=== PATIENT | female | born 1965 | race Caucasian/White ===

== ENCOUNTER → 2018-01-13 22:25 | Outpatient (CLI) | payer OTHER, SELFPAY ==
[2018-01-16 09:02] LABS: HPV Reflexed? NOT INDICATED
== END ==
PROVIDERS: Visit Provider Obstetrics & Gynecology
DX: Z12.4 Encounter for screening for malignant neoplasm of cervix (principal)
CPT/HCPCS: 88175; G0145

== ENCOUNTER → 2019-06-01 14:35 | Outpatient (CLI) | payer OTHER, SELFPAY ==
[2015-11-13 10:17] VITALS: BMI 29.2
[2019-06-01 15:10] LABS: Follicle Stimulating Hormone 91.4 mIU/mL
[2019-06-05 10:01] LABS: HPV APTIMA, High Risk Negative (Negative)
== END ==
PROVIDERS: Visit Provider Obstetrics & Gynecology
DX: Z12.4 Encounter for screening for malignant neoplasm of cervix (principal); N93.9 Abnormal uterine and vaginal bleeding, unspecified
CPT/HCPCS: 83001; 87624; 88175; G0145

== ENCOUNTER 2019-06-17 07:17 | Day surgery (SDC) | payer OTHER, SELFPAY ==
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
[2019-06-17] MEDS: Lactated Ringers 1,000 ML 75 ML IV (07:59)
[2019-06-17 08:10] VITALS: BP 121/81; PULSE 66; RESP 16; TEMP 36.4; O2SAT 97; BMI 30.3
--- NOTE | 2019-06-17 08:55 | EMB_PTH ---
PATIENT: RADHA CROWE LOC: [facility] [place] U#:[id number] AGE/SX: 54/F ROOM: RE06/17/[address]: Dr. Jaclyn Mayes MD : 1965 BED: DIS: 06/17/2019 SPEC #: [id number] RECD: 06/17/19 10:53 STATUS: ROSA RETristen #: [id number] JOCY: 06/17/19 08:[address]: Jaclyn Malcolm DEPT: SURGICAL PATHOLOGY RECD BY: Suraj Schroeder ENTERED: 06/17/19 11:13 SP TYPE: ENDOM BX/C OTHR DR: No Primary Care Phys Tissues: Endometrium, NOS Procedures: Surgery Specimen Level IV HEADER OPERATION: Hysteroscopy, dilation and curettage, Symphion PRE-OP DIAGNOSIS: Postmenopausal bleeding TISSUE SUBMITTED: Endometrial curettings and polyp MICROSCOPIC DIAGNOSIS Endometrial curettings and polyp, biopsy: A fragment of benign endometrial tissue with proliferative endometrium and cystic changes, may represent fragment of benign endometrial polyp. JODI:omar 06/18/19 COMMENT Clinical correlation and appropriate follow up are necessary. MICROSCOPIC DESCRIPTION Slides are reviewed. GROSS DESCRIPTION Received in fixative is one container labeled with the patient's name and designated endometrial curettings. The specimen consists of multiple fragments of hemorrhagic soft tissue that in aggregate measure 0.4 x 0.1 x 0.1 cm. The entire specimen is submitted in one cassette. / JODI:omar 06/17/19 TC:5 CPT: 32188
[2019-06-17] MEDS: Lubricating Jelly 60 GM Tube 30 GM TOPICAL (09:45)
--- NOTE | 2019-06-17 10:13 | PCM.OPRPT ---
Problem List (1) Postmenopausal bleeding Status: Acute Report of Operation Date of Procedure: 06/17/19 Pre-Operative Diagnosis: Post menopausal bleeding Post-Operative Diagnosis: Postmenopausal bleeding, endometrial polyp Surgery/Procedure Performed:: Hysteroscopy, dilation and curettage, hysteroscopic polypectomy Description of Surgical Findings:: Endometrial polyp, otherwise thin endometrium. Normal tubal ostia. Type of Anesthesia:: Local MAC Anesthesiologist: Christian Almazan Specimen's removed: Endometrial curettings and polyp Estimated Blood Loss (mL): 2 Fluids Replaced: 500 Description of Procedure: Patient was brought to the operating room and placed in the dorsal supine position and induced under MAC. She is placed into dorsal lithotomy. The perineum was prepped and draped in sterile fashion. The patient was placed in the high lithotomy. Speculum was placed into the vagina and the cervix grasped using single-tooth tenaculum. A paracervical block was placed with a total of 20 cc of 1% lidocaine. The percentage 9 cm and the cervix was subsequently dilated. Hysteroscopy was performed demonstrating an anterior endometrial polyp. A partial polypectomy was performed using polyp forceps and hysteroscopic polypectomy followed using the symphion manual resectoscope. Sharp curettage was subsequently performed. Hysteroscopy was again performed confirming integrity of the uterine cavity. The procedure was complete. The hysteroscope was removed. The tenaculum was also removed. The tenaculum site was hemostatic. The patient was placed into dorsal supine position, awakened and transferred to recovery room without complication. Sponge counts were correct x2. - Complications none - Admit VTE Documentation VTE Present on Admission: No VTE Mechan Device Prophylaxis: [facility] [place] VTE Pharm Prophylaxis ordered?: No
--- NOTE | 2019-06-17 10:22 | DCINST_ITS ---
Discharge Diet: No Restrictions Discharge Activity: Return to Normal Activity, May not drive while taking narcotic pain medications., May Shower May resume sexual activity in: - - 2-4 weeks Call your doctor if you observe: Fever of 101 or Higher, Inability to urinate, Inability to have a bowel movement, Using more than one pad per hour, Shortness of breath, Chest pain, Calf discomfort, Uncontrolled pain Allergies/Adverse Reactions: Allergies latex Allergy (Verified 06/10/19 09:17) PEELS SKIN OFF Penicillins Adverse Reaction (Verified 06/10/19 09:17) Rash Sulfa (Sulfonamide Antibiotics) Adverse Reaction (Verified 06/10/19 09:17) Rash Medications to take at Discharge Ascorbic Acid [Vitamin C] 500 mg PO DAILY@0800 11/06/15 Ibuprofen 600 mg PO TID PRN #30 tab 06/17/19 The following prescriptions were given: Ibuprofen 600 mg PO TID PRN #30 tab PRN Reason: Pain Transmission Status: Pending to [id number] Primary Care Physician: Care Physician,No Primary [Primary Care Provider] - Test Results: Test results from this visit will be discussed in further detail at your follow- up appointment, if applicable. Please Follow Up With: Jaclyn Quezada MD When: 2-4 weeks
[2019-06-17 10:25] VITALS: BP 121/81; BP 144/101; PULSE 73; RESP 18; TEMP 36.2; O2SAT 94
[2019-06-17 10:30] VITALS: BP 121/81; BP 125/91; PULSE 70; RESP 18; O2SAT 95
[2019-06-17 10:35] VITALS: BP 121/81; BP 129/83; PULSE 68; RESP 18; O2SAT 97
[2019-06-17 10:40] VITALS: BP 121/81; BP 129/89; PULSE 70; RESP 18; TEMP 36.1; O2SAT 97
[2019-06-17 11:08] VITALS: BP 121/81
== END 2019-06-17 11:20 | disposition home or self-care (01) ==
LOC: SDC 07:18 → AC 07:20
PROVIDERS: Referring Provider Obstetrics & Gynecology; Visit Provider Obstetrics & Gynecology
PROC: 0UDB8ZZ Extraction of Endometrium, Via Natural or Artificial Opening Endoscopic (ICD-10-PCS; CPT 58558; principal; 2019-06-17 08:45)
DX: N84.0 Polyp of corpus uteri (principal); N95.0 Postmenopausal bleeding; G47.30 Sleep apnea, unspecified; Z79.899 Other long term (current) drug therapy; Z78.0 Asymptomatic menopausal state; Z88.0 Allergy status to penicillin; Z88.2 Allergy status to sulfonamides; Z85.828 Personal history of other malignant neoplasm of skin
CPT/HCPCS: 00952; 58558; 86850; 86900; 86901; 88305; J7120

== ENCOUNTER → 2019-10-22 12:02 | Outpatient (CLI) | payer OTHER, SELFPAY ==
[2019-10-22 12:41] LABS: Hemoglobin A1c 5.6 % (4.2-6.3)
[2019-10-22 13:14] LABS: Progesterone Level 0.34 ng/mL (See Comment)
== END ==
PROVIDERS: Visit Provider Obstetrics & Gynecology
DX: N95.1 Menopausal and female climacteric states (principal); Z13.1 Encounter for screening for diabetes mellitus
CPT/HCPCS: 36415; 83036; 84144